=== PATIENT | male | born 1940 | race Caucasian/White ===

== ENCOUNTER 2019-04-21 06:45 | Day surgery (SDC) | payer MEDICARE, OTHER ==
[2019-04-19 13:35] LABS: BASOPHILS % (AUTO) 0.5 % (0.0-5.0); EOSINOPHILS % (AUTO) 3.6 % (0.0-8.0); HEMATOCRIT 40.8 % (42-54); LYMPHOCYTES % (AUTO) 10.4 % (21.0-51.0); MEAN CORPUSCULAR HEMOGLOBIN 30.7 pg (27.0-33.0); MEAN CORPUSCULAR HGB CONC 31.6 g/dL (32.0-36.0); MEAN CORPUSCULAR VOLUME 97.1 fL (79-99); MONOCYTES % (AUTO) 8.2 % (3.0-13.0); NEUTROPHILS % (AUTO) 76.9 % (40.0-77.0); PLATELET COUNT (AUTO) 164 K/uL (130-400); RED CELL DISTRIBUTION WIDTH 15.9 % (11.0-15.5); WHITE BLOOD COUNT (AUTO) 9.5 K/uL (4.8-10.8)
[2019-04-19 13:39] VITALS: BP 100/56
[2019-04-19 13:44] LABS: CREATININE 1.8 mg/dL (0.5-1.5); POTASSIUM 4.1 mmol/L (3.5-5.1)
[2019-04-19 13:53] LABS: INR 1.05 (0.85-1.15); PARTIAL THROMBOPLASTIN TIME 28.5 SEC (26.3-35.5)
[2019-04-19 16:00] LABS: APPEARANCE,URINE Clear (CLEAR); BILIRUBIN,URINE Negative (NEGATIVE); COLOR,URINE Dark Yellow (YELLOW); GLUCOSE, URINE (UA) Negative (NEGATIVE); KETONES,URINE Negative (NEGATIVE); LEUKOCYTE ESTERASE ,URINE Negative (NEGATIVE); NITRATE,URINE Negative (NEGATIVE); OCCULT BLOOD,URINE Negative (NEGATIVE); PH,URINE 5.5 (5.0-8.0); PROTEIN,URINE POS 2+ mg/dL (NEGATIVE)
[2019-04-19 16:27] LABS: BACTERIA,URINE Rare /HPF (None Seen); RBC,URINE None Seen /HPF (0-1); SQUAMOUS EPITHELIAL CELL,UR 0-2 /HPF (0-2); WBC,URINE 0-1 /HPF (0-1)
--- NOTE | 2019-04-20 13:57 | NUR ---
LAB CHEST XRAY, UA, BMP WERE REPORTED AND FAXED BY Max WOODRUFF RN. DINESH GILMAN ON PHONE. PER Jeb SANCHEZ, SWING MANAGER ORDERS RECEIVED TO HYDRATE WITH NS @100ML/HR ON DAY OF PROCEDURE.
[~2019-04-21] VITALS: Ht 177.8 cm; Wt 119.6 kg
[2019-04-21] VITALS (10 sets, daily range): BP systolic 16–135; BP diastolic 54–84
[~2019-04-21 06:45] MED LIST: ALLO300T2 PO; ASPI-556 PO; ATEN25TA PO; ATOR20TA65 PO; CHOL200059 PO; CYAN50008 PO; ENAL20TA18 PO; LATA7.5D OU; METH-350 PO; MULT1TAB66 PO; TORS10TA18 PO; [UNRECOGNIZED DRUG - OTHER] OU
[2019-04-21] MEDS ORDERED: SODIUM CHLORIDE 0.9% 1000ML 1,000 ML IV SCH ×2 (07:00→08:00)
[2019-04-21] MEDS ORDERED: DORZ10DR19 OU (08:11)
[2019-04-21] MEDS ORDERED: HEPARIN SODIUM 1000UNIT/ML 10ML VIAL ONE (11:06)
[2019-04-21] MEDS ORDERED: LIDOCAINE HCL 2% 20ML ONE (11:06)
[2019-04-21] MEDS ORDERED: IOHEXOL-350 50ML VIAL IV ONE (11:06)
[2019-04-21] MEDS ORDERED: MIDAZOLAM HCL 1 MG/ML 2ML VIAL ONE (11:06)
[2019-04-21] MEDS ORDERED: IOHEXOL 350 MG/ML 100ML INFUS..BTL IV ONE (11:06)
--- NOTE | 2019-04-21 11:15 | NUR ---
PROCEDURE PT TAKEN TO HELICOPTER MECHANIC FOR SCHEDULED PROCEDURE
[2019-04-21] MEDS ORDERED: GLUCAGON 1MG KIT 1 MG ML IM PRN (12:00)
[2019-04-21] MEDS ORDERED: DEXTROSE 50%-WATER 50 ML DISP.SYRIN IV PRN (12:00)
--- NOTE | 2019-04-21 12:10 | NUR ---
POST RECEIVED PT FROM GREASE MACHINE WORKER S/P [facility], SEE POST CATH ASSESMENT, VS STABLE. PATIENT INSTRUCTED TO KEEP BEDREST OFR 3 HRS . PT DENIED ANY PAIN OR DISCOMFORTS. SPOUSE AT BEDSIDE PLAN OF CARE DISCUSS WITH PATIENT/ SPOUSE , PENDING CARDIOVASCULAR CONSULT. DR. WILSON TO SPEAK TO PATIENT
== END 2019-04-21 16:20 | disposition home or self-care (01) ==
LOC: DAH 06:45
PROVIDERS: ATTEND Internal Medicine Cardiovascular Disease
DX: I25.10 Atherosclerotic heart disease of native coronary artery without angina pectoris (principal); I25.82 Chronic total occlusion of coronary artery; I35.0 Nonrheumatic aortic (valve) stenosis; I10 Essential (primary) hypertension; E78.5 Hyperlipidemia, unspecified; M10.9 Gout, unspecified; R55 Syncope and collapse; E66.9 Obesity, unspecified; Z98.890 Other specified postprocedural states; Z79.899 Other long term (current) drug therapy; Z79.82 Long term (current) use of aspirin; Z87.891 Personal history of nicotine dependence; Z79.01 Long term (current) use of anticoagulants; Z98.49 Cataract extraction status, unspecified eye; Z96.1 Presence of intraocular lens; Z68.37 Body mass index [BMI] 37.0-37.9, adult; Z82.49 Family history of ischemic heart disease and other diseases of the circulatory system; Z82.3 Family history of stroke; Z83.3 Family history of diabetes mellitus
CPT/HCPCS: 36415; 71045; 80048; 81001; 85025; 85610; 85730; 93005; 93454; 96360; 96361; A4215; A4216; A4221; A4222; A4223 ×3; A4606; A4663; C1760; C1894; J1644 ×2; J3490; Q9965; Q9967 ×2; J2250